=== PATIENT | female | born 1995 | race Hispanic/Latino ===

== ENCOUNTER → 2018-01-02 | Outpatient (CLI) | payer OTHER ==
[~2018-01-02] MED LIST: GADOBENATE DIMEGLUMINE 1 ML IV ONE; PRENATAL COMPL1 EACH PO; SPRINTEC1 EACH PO
--- NOTE | 2018-01-02 17:43 | Diagnostic Imaging Report ---
Exam: Cervical spine MRI without with IV contrast History: Possible demyelinating disease. Numbness and weakness in left side of body and tingling enhance. Comparison studies: None Technique: Precontrast sagittal T2, T1, STIR and axial T1. Postcontrast sagittal axial T1 and axial T2. IV contrast: 14 cc MultiHance. Findings: Alignment: Mild reversal the usual cervical lordotic curvature. Cervicomedullary junction: No abnormalities. Patent foramen magnum. Soft tissues: No T2 hyperintense inflammatory changes. Spinal cord: Normal in size and signal from the foramen magnum through T1. No enhancing abnormalities. Vertebrae: No fractures, infection or neoplasm. Degenerative changes: Small disc bulges at C3-C4, C4-C5 and C5-C6 with small central disc protrusion at C5-C6 indent the thecal sac but do not result in canal stenosis. Patent foramina. Incidental findings: Questionable ill-defined enhancement in the left superior cerebellum without surrounding edema or mass effect may be artifactual or possibly represent small developmental venous anomaly. IMPRESSION: 1. No evidence of demyelinating disease in the cervical cord. 2. Mild degenerative changes from C3 to C6 without canal stenosis, foraminal stenosis or nerve root impingement. Signed by: Dr. Maxim Roy M.D. on 01/02/2018 5:39 PM
== END ==
LOC: MRI 08:11
PROVIDERS: ATTEND Student in an Organized Health Care Education/Training Program
DX: G37.9 Demyelinating disease of central nervous system, unspecified (principal)
CPT/HCPCS: 72156

== ENCOUNTER → 2018-06-15 | Outpatient (CLI) | payer OTHER ==
--- NOTE | 2018-06-15 10:27 | Diagnostic Imaging Report ---
MRI BRAIN WOW HISTORY: Left-sided weakness, episodic COMPARISON: MRI cervical spine 01/02/2018 TECHNIQUE: Multiplanar, multisequence MRI of the brain (including diffusion-weighted imaging) was performed before and after the administration of intravenous, gadolinium based contrast. 15 mL of MultiHance were administered. DISCUSSION: Scalp/bone marrow: Unremarkable. Ventricles: Septum pellucidum is not clearly visualized. This may be due to presence of a cavum septum pellucidum et vergae, a normal variant. The ventricles are otherwise unremarkable. Extra-axial spaces: No masses or fluid collections. Parenchyma: Scattered small T2/FLAIR hyperintense foci (approximately 20-25) are seen in the bilateral supratentorial subcortical white matter, deep white matter, and periventricular white matter. These lesions range from 2 to 11 mm in size. A few associated small, subtle foci of enhancement in the right centrum semiovale and diaz radiata are present. No other definite enhancing lesions are seen. There is mild atrophy of the posterior corpus callosal body. No significant brain atrophy is seen. No CSF-like T1 hypointensities are seen. Otherwise, no mass, hemorrhage, or acute vascular insults. Vessels: Normal flow voids in major arteries and veins. Sellar/Suprasellar region: No abnormalities. Craniocervical junction: No abnormalities. Incidental findings: None. IMPRESSION: 1. Nonspecific, scattered small T2/FLAIR hyperintense foci in the bilateral supratentorial white matter may be due to prior demyelination. 2. Few small subtle foci of enhancement in the right centrum semiovale and diaz radiata may be due to active demyelination/inflammation. Signed by: Dr. Jareth Cornelius M.D. on 06/15/2018 10:24 AM
== END ==
LOC: MRI 07:41
PROVIDERS: ATTEND Student in an Organized Health Care Education/Training Program
DX: G37.9 Demyelinating disease of central nervous system, unspecified (principal)
CPT/HCPCS: 70553; A9577

== ENCOUNTER → 2019-06-17 | Outpatient (CLI) | payer OTHER ==
[2019-06-17 11:14] LABS: BASOPHILS % 0.4 % (0.0-1.0); EOSINOPHILS # (AUTO) 0.1 (0.0-0.4); EOSINOPHILS % 0.7 % (0.0-6.0); HEMATOCRIT 34.3 % (34.2-44.1); LYMPHOCYTES # (AUTO) 1.5 (1.0-3.2); LYMPHOCYTES % 20.1 % (18.0-39.1); MEAN CORPUSCULAR HEMOGLOBIN 31.5 pg (28-32); MONOCYTES # (AUTO) 0.7 (0.2-0.8); MONOCYTES % 9.5 % (4.4-11.3); NEUTROPHILS # (AUTO) 5.1 (2.1-6.9); NEUTROPHILS % 68.9 % (38.7-80.0); PLATELET COUNT 243 x10e3/uL (140-360); RED BLOOD COUNT 3.81 x10e6/uL (3.6-5.1)
[2019-06-17 11:23] LABS: ALANINE AMINOTRANSFERASE 16 IU/L (0-55); ALBUMIN 4.3 g/dL (3.5-5.0); ALBUMIN/GLOBULIN RATIO 1.4 (0.8-2.0); ALKALINE PHOSPHATASE 37 IU/L (40-150); ANION GAP 14.7 mmol/L (8-16); BLOOD UREA NITROGEN 10 mg/dL (7-26); BUN/CREATININE RATIO 15 (6-25); CALCIUM 9.7 mg/dL (8.4-10.2); CARBON DIOXIDE 23 mmol/L (22-29); CHLORIDE 106 mmol/L (98-107); CREATININE, SERUM 0.66 mg/dL (0.57-1.11); EST GLOMERULAR FILTRATION RATE > 60 ML/MIN (60-); GLUCOSE 96 mg/dL (74-118); POTASSIUM 3.7 mmol/L (3.5-5.1); SODIUM 140 mmol/L (136-145)
--- NOTE | 2019-06-17 18:01 | Diagnostic Imaging Report ---
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 Size: Range from 2 mm to 11 mm. Location: Juxtacortical, subcortical, deep supratentorial and periventricular no posterior fossa lesions identified. T1 hypointense foci: Unchanged small moderately T1 hypointense lesion in the right centrum semiovale Enhancing lesions: T1 hyperintensity along a lesion in the right frontal centrum semiovale and a few lesions in the diaz radiata is thought to be intrinsic T1 hyperintensity related enhancement and is unchanged. No enhancing lesions. Corpus callosum volume: Mild volume loss in the genu and body, unchanged. Brain volume: Adequate for age Other: No extra axial fluid collection, hemorrhage, hydrocephalus or acute ischemia. The septum pellucidum is not visualized and may be congenitally thin or absent. The pituitary gland also appears somewhat small in size. 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 There there is mildly thickened cortex cortical undulation which may reflect polymyalgia gyri along the posterior right sylvian fissure. This is retrospectively visualized on the prior exam and is unchanged. IMPRESSION: No changes from the prior brain MRI of 06/15/2018. 1. Demyelinating lesions are unchanged. No new lesions. 2. A few previously described enhancing lesions are unchanged. Moreover, apparent enhancement may be due to intrinsic T1 hyperintensity rather than true enhancement given stability. No newly enhancing lesions. 3. Unchanged right perisylvian polymicrogyria. 4. Poorly visualized septum pellucid him with somewhat small pituitary gland for which septo-optic dysplasia spectrum is a consideration. Signed by: Dr. Maxim Roy M.D. on 06/17/2019 5:58 PM
--- NOTE | 2019-06-17 18:50 | Diagnostic Imaging Report ---
Exam: Cervical spine MRI without with IV contrast History: 23-year-old female with multiple sclerosis, numbness and weakness in left side of body with tingling in hands. Comparison studies: Cervical spine MRI 01/02/2018 Technique: Precontrast sagittal and axial T1, sagittal and axial T2, sagittal STIR and postcontrast sagittal axial T1 Intravenous contrast: 14 cc of MultiHance Findings: Spinal Cord: Normal in size and signal from the foramen magnum through T1. T2 lesion load: None. T1 hypointense foci: None. Enhancement: None. Additional comments: Alignment: Mild reversal of the usual cervical lordotic curvature. Cervicomedullary junction: No abnormalities. The foramen magnum is patent. No Chiari one malformation. Soft tissues tissues: No signal abnormalities. Vertebral bodies: No compression fractures from C2 through T3. Degenerative changes: Small disc bulges at C4-C5 and small central disc protrusion at C6-C7 are unchanged. Patent canal and foramina. No nerve root impingement. IMPRESSION: 1. No changes from the prior cervical spine MRI of 01/02/2018. 2. No evidence of demyelinating disease in the cervical spine. Signed by: Dr. Maxim Roy M.D. on 06/17/2019 6:46 PM
== END ==
LOC: MRI 09:14
PROVIDERS: ATTEND Student in an Organized Health Care Education/Training Program
DX: G35 Multiple sclerosis (principal); G37.9 Demyelinating disease of central nervous system, unspecified
CPT/HCPCS: 36415; 70553; 72156; 80053; 81025; 85025; A9577

== ENCOUNTER → 2020-05-16 | Outpatient (CLI) | payer OTHER ==
--- NOTE | 2020-05-16 15:33 | Diagnostic Imaging Report ---
Exam: Brain MRI without with IV contrast History: 24-year-old female with multiple sclerosis. Comparison studies: Brain MRI 06/17/2019. Technique: Brain: Precontrast axial DWI, T1, T2, T2 FLAIR, 3-D T2 FLAIR FS reconstructed in the axial, sagittal and coronal planes. Postcontrast 3-D T1 FS reconstructed in the axial, sagittal and coronal planes. Intravenous contrast: 15 cc of MultiHance. Findings: T2 lesion load: Number: Approximately 20-25. Size: Range from 2 mm to 11 mm. A small right inferior parietal lesion is decreased in size. Location: Juxtacortical, subcortical, deep supratentorial and periventricular. No posterior fossa or basal ganglial lesions. T1 hypointense foci: Right centrum semiovale lesion which is likely moderately T1 hypointense is suboptimally imaged on the precontrast T1 sequence due to small image size and slice selection. Enhancing lesions: None Corpus callosum volume: Adequate for age Brain volume: Adequate for age Other: The septum pellucidum is not well-visualized and may be congenitally thin or absent. The pituitary gland also appears somewhat small in size. Focally thickened and disorganized right perisylvian cortical parkinson matter which may reflect polymicrogyria. Additional similar disorganized cortex present in the left parietal lobe which is also unchanged and better visualized on the current exam due to differences in imaging technique. Both of these abnormalities can be visualized on the axial T2 sequence (series 11, image 14). IMPRESSION: 1. Small nonenhancing supratentorial white matter lesions which can be seen with the clinical diagnosis of multiple sclerosis are unchanged from the prior MRI of 06/17/2019. No new or enhancing lesions. 2. 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 3. 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 Signed by: Dr. Maxim Roy M.D. on 05/16/2020 3:29 PM
--- NOTE | 2020-05-16 15:36 | Diagnostic Imaging Report ---
Exam: Cervical spine MRI without with IV contrast History: 24 are old female with multiple sclerosis Comparison studies: None Technique: Precontrast sagittal and axial T1, sagittal and axial T2, sagittal STIR and postcontrast sagittal and axial T1 Intravenous contrast: 15 cc MultiHance Findings: Spinal Cord: Normal in size and signal from the foramen magnum through T1. T2 lesion load: None to. T1 hypointense foci: None. Enhancement: None. Additional comments: Alignment: Normal lordosis. No scoliosis.. Cervicomedullary junction: No abnormalities. The foramen magnum is patent. No Chiari one malformation. Soft tissues tissues: No signal abnormalities. Vertebral bodies: No fracture, infection or neoplasm. Incidental findings: Small disc bulge at C4-C5 and small central disc protrusion at C6-C7 are unchanged. Patent canal and foramina. No nerve root impingement. IMPRESSION: 1. No changes from the prior cervical spine MRI of 06/17/2019. 2. No evidence of cervical cord demyelinating disease. Signed by: Dr. Maxim Roy M.D. on 05/16/2020 3:33 PM
== END ==
LOC: MRI 07:54
PROVIDERS: ATTEND Student in an Organized Health Care Education/Training Program
DX: G37.9 Demyelinating disease of central nervous system, unspecified (principal)
CPT/HCPCS: 70553; 72156; 81025

== ENCOUNTER → 2020-11-03 | Outpatient (CLI) | payer OTHER | LOC: MRI 07:26 | PROVIDERS: ATTEND Psychiatry & Neurology Neurology | DX: G35 Multiple sclerosis (principal) | CPT/HCPCS: 70553; 72156; 72157; 81025 ==